=== PATIENT | female | born 1955 | race Caucasian/White ===

== ENCOUNTER 2016-12-15 08:18 | Emergency (ER) | payer OTHER ==
[~2016-12-15] VITALS: Ht 162.6 cm; Wt 95.0 kg
[~2016-12-15 08:18] MED LIST: ALPR.5 PO; HYDR-3533 PO; METO25 PO; PAXI40TA PO; TRAM50 PO
[2016-12-15 08:29] VITALS: BP 175/99; PULSE 78; RESP 20; TEMP 97.9; O2SAT 97
[2016-12-15] MEDS ORDERED: SODIUM CHLORIDE 0.9% FLUSH 10 ML FLUSH IVF PRN (08:30)
[2016-12-15] MEDS ORDERED: SODIUM CHLORID 0.9% 500 ML INJ 500 ML IV ONE (08:30)
[2016-12-15] MEDS ORDERED: NITROGLYCERIN 2% OINT 1 GM PACKET TOP ONE (08:30)
[2016-12-15] MEDS ORDERED: MORPHINE SULFATE 4 MG/ML INJ IV PUSH ONE (08:30)
--- NOTE | 2016-12-15 08:35 | PD ---
HPI Chief Complaint: Chest Pain Time Seen by Provider: 08:30 Travel History International Travel<30 days: No Contact w/Intl Traveler<30days: No Traveled to known affect area: No History of Present Illness HPI 61-year-old female patient with history of hypertension, bipolar disorder, anxiety, presents to the ER today for left sided chest chest pains that is worse with deep breaths and movements. She has been having some coughing, states she smokes "a lot". She denies any nausea, abdominal pains, fevers, vomiting, or any other symptoms. She denies any recent travel. She does states that her doctor's office had called her regarding recent test results which were abnormal, had told her that she had a fairly elevated cholesterol level is well. Chest pain is currently stated to be a 4 out of 10. Modifying Factors: None Associated Signs & Symptoms: Left-sided chest pains, shortness of breath Risk Factors: None PFSH Past Medical History Anxiety: Yes Depression: Yes High Cholesterol: Yes Cerebrovascular Accident: Yes Diabetes: No Diminished Hearing: No Integumentary: Yes (chronic rash on bottom of both feet since 2006) Menopausal: Yes Past Surgical History Other Surgery: Yes ("skin graft,to right inner thigh") Social History Alcohol Use: No Tobacco Use: Yes (1 PPD) Substance Use: No Allergies-Medications (Allergen,Severity, Reaction): Coded Allergies: No Known Allergies (Verified , 12/15/16) Reported Meds & Prescriptions Reported Meds & Active Scripts Active Reported Losartan (Losartan Potassium) 100 Mg Tab 100 Mg PO DAILY Alprazolam 1 Mg Tab 1 Mg PO TID Paroxetine (Paroxetine HCl) 30 Mg Tab 30 Mg PO DAILY Tramadol (Tramadol HCl) 50 Mg Tab 50 Mg PO Q8H PRN Methylphenidate ER 24 HR (Methylphenidate HCl) 54 Mg Jennifer 54 Mg PO DAILY Review of Systems Except as stated in HPI: all other systems reviewed are Neg Physical Exam Narrative GENERAL: Well-developed pleasant elderly white female patient currently in mild distress. She appears mildly anxious. Awake and oriented 3. SKIN: Focused skin assessment warm/dry. HEAD: Atraumatic. Normocephalic. EYES: Pupils equal and round. No scleral icterus. No injection or drainage. ENT: No nasal bleeding or discharge. Mucous membranes pink and moist. NECK: Trachea midline. No JVD. CARDIOVASCULAR: Regular rate and rhythm. No murmur appreciated. Pulses are present and equal bilaterally. RESPIRATORY: No accessory muscle use. Clear to auscultation. Breath sounds equal bilaterally. GASTROINTESTINAL: Abdomen soft, non-tender, nondistended. Hepatic and splenic margins not palpable. MUSCULOSKELETAL: No obvious deformities. No clubbing. No cyanosis. No edema. EXTREMITIES: No clubbing, cyanosis, or edema. No joint tenderness, effusion, or edema noted. No calf tenderness. NEUROLOGICAL: Awake and alert. No obvious cranial nerve deficits. Motor grossly within normal limits. Normal speech. PSYCHIATRIC: Appropriate mood and affect; insight and judgment normal. Data Data Last Documented VS Vital Signs Date Time Temp Pulse Resp B/P (MAP) Pulse Ox O2 Delivery O2 Flow Rate FiO2 12/15/16 09:50 78 18 138/83 (101) 97 Room Air 12/15/16 08:29 97.9 Orders Orders Electrocardiogram (12/15/16 08:30) B-Type Natriuretic Peptide (12/15/16 08:30) Ckmb (Isoenzyme) Profile (12/15/16 08:30) Complete Blood Count With Diff (12/15/16 08:30) Comprehensive Metabolic Panel (12/15/16 08:30) D-Dimer (12/15/16 08:30) Magnesium (Mg) (12/15/16 08:30) Prothrombin Time / Inr (Pt) (12/15/16 08:30) Act Partial Throm Time (Ptt) (12/15/16 08:30) Troponin I (12/15/16 08:30) Chest, Single Ap (12/15/16 08:30) Ecg Monitoring (12/15/16 08:30) Bilateral Bp Monitoring (12/15/16 08:30) Iv Access Insert/Monitor (12/15/16 08:30) Oximetry (12/15/16 08:30) Oxygen Administration (12/15/16 08:30) Morphine Inj (Morphine Inj) (12/15/16 08:30) Nitroglycerin 2% Oint (Nitroglycerin 2% (12/15/16 08:30) Sodium Chloride 0.9% Flush (Ns Flush) (12/15/16 08:30) Sodium Chlorid 0.9% 500 Ml Inj (Ns 500 M (12/15/16 08:30) Labs Laboratory Tests Test 12/15/16 08:45 White Blood Count 7.4 TH/MM3 Red Blood Count 4.43 MIL/MM3 Hemoglobin 14.6 GM/DL Hematocrit 43.2 % Mean Corpuscular Volume 97.5 FL Mean Corpuscular Hemoglobin 32.9 PG Mean Corpuscular Hemoglobin Concent 33.7 % Red Cell Distribution Width 12.9 % Platelet Count 258 TH/MM3 Mean Platelet Volume 7.4 FL Neutrophils (%) (Auto) 72.7 % Lymphocytes (%) (Auto) 21.4 % Monocytes (%) (Auto) 3.2 % Eosinophils (%) (Auto) 2.1 % Basophils (%) (Auto) 0.6 % Neutrophils # (Auto) 5.4 TH/MM3 Lymphocytes # (Auto) 1.6 TH/MM3 Monocytes # (Auto) 0.2 TH/MM3 Eosinophils # (Auto) 0.2 TH/MM3 Basophils # (Auto) 0.0 TH/MM3 CBC Comment DIFF FINAL Differential Comment Prothrombin Time 10.3 SEC Prothromb Time International Ratio 0.9 RATIO Activated Partial Thromboplast Time 26.8 SEC D-Dimer Quantitative (PE/DVT) 0.21 MG/L FEU Blood Urea Nitrogen 12 MG/DL Creatinine 0.71 MG/DL Random Glucose 96 MG/DL Total Protein 6.7 GM/DL Albumin 3.5 GM/DL Calcium Level 8.3 MG/DL Magnesium Level 2.2 MG/DL Alkaline Phosphatase 82 U/L Aspartate Amino Transf (AST/SGOT) 9 U/L Alanine Aminotransferase (ALT/SGPT) 23 U/L Total Bilirubin 0.4 MG/DL Sodium Level 137 MEQ/L Potassium Level 4.5 MEQ/L Chloride Level 106 MEQ/L Carbon Dioxide Level 25.3 MEQ/L Anion Gap 6 MEQ/L Estimat Glomerular Filtration Rate 84 ML/MIN Total Creatine Kinase 51 U/L Troponin I LESS THAN 0.02 NG/ML B-Type Natriuretic Peptide 20 PG/ML MDM Medical Decision Making Medical Screen Exam Complete: Yes Emergency Medical Condition: Yes Medical Record Reviewed: Yes Interpretation(s) EKG shows NSR, no acute ST elevation or depression, and no arrhythmias. No significant T-wave inversions. Laboratory Tests Test 12/15/16 08:45 Neutrophils (%) (Auto) 72.7 % (16.0-70.0) Calcium Level 8.3 MG/DL (8.5-10.1) Aspartate Amino Transf (AST/SGOT) 9 U/L (15-37) Estimat Glomerular Filtration Rate 84 ML/MIN (>89) Troponin I LESS THAN 0.02 NG/ML Last 24 hours Impressions Chest X-Ray 12/15/16 0830 Signed Impressions: Service Date/Time: , December 15, 2016 08:57 - CONCLUSION: Normal examination. Mike Aponte Jr., MD Differential Diagnosis Chest pains, shortness of breath: ACS versus dysrhythmias versus costochondritis versus anxiety attack versus PE versus pneumonia Narrative Course Chest x-ray did not show any signs of acute processes. D-dimer is negative. EKG did not show any signs of acute ST-T changes. Patient had been given nitroglycerin, had taken her own aspirin this morning, and was given morphine in the ER. On reevaluation at 10 AM, she is feeling improved. At this point, I have discussed admission to chest pain center with her for further provocative testing including stress testing for further differentiation of chest pains. However, patient states that her sister has ovarian cancer and she has to be there for her in the next few days. She is declining to stay. I have noted that I cannot rule out underlying cardiac risk and possibility of ACS , wrist would need to be further assessed with further cardiac testing. If she does not want to stay today, she should follow-up closely with primary care doctor and cardiology for further testing as an outpatient. She should return for any worsening in symptoms. The plan was discussed with her and the results were discussed with her and she states understanding, does not want to be admitted to chest pain center and wants to follow-up as an outpatient. Diagnosis Primary Impression: Chest pain Disposition: 01 DISCHARGE HOME Condition: Stable Margret Muniz MD Dec 15, 2016 08:35
[2016-12-15 08:57] LABS: AUTOMATED NEUTROPHIL # 5.4 TH/MM3 (1.8-7.7); BASOPHIL % 0.6 % (0.0-2.0); EOSINOPHIL # 0.2 TH/MM3 (0-0.4); EOSINOPHIL % 2.1 % (0.0-4.0); HEMATOCRIT 43.2 % (35.0-46.0); LYMPH % 21.4 % (9.0-44.0); LYMPHOCYTE # 1.6 TH/MM3 (1.0-4.8); MEAN CELL VOLUME 97.5 FL (80.0-100.0); MEAN CORPUSCULAR HEMOGLOBIN 32.9 PG (27.0-34.0); MEAN CORPUSCULAR HGB CONC 33.7 % (32.0-36.0); MONO % 3.2 % (0.0-8.0); NEUT % 72.7 % (16.0-70.0); PLATELET COUNT 258 TH/MM3 (150-450); RED BLOOD COUNT 4.43 MIL/MM3 (4.00-5.30); RED CELL DISTRIBUTION WIDTH 12.9 % (11.6-17.2); WHITE BLOOD COUNT 7.4 TH/MM3 (4.0-11.0)
[2016-12-15 08:58] LABS: HEMO FLAGS DIFF FINAL
[2016-12-15] MEDS ORDERED: LOSA100T PO (09:04)
[2016-12-15] MEDS ORDERED: METH54TA PO (09:04)
[2016-12-15] MEDS ORDERED: ALPR1TAB3 PO (09:04)
[2016-12-15] MEDS ORDERED: PARO30TA2 PO (09:04)
[2016-12-15] MEDS ORDERED: TRAM50TA PO (09:04)
[2016-12-15 09:05] VITALS: RESP 20; O2SAT 97
[2016-12-15 09:05] LABS: CHLORIDE 106 MEQ/L (98-107); POTASSIUM 4.5 MEQ/L (3.5-5.1); SODIUM (NA) 137 MEQ/L (136-145)
[2016-12-15 09:09] LABS: ANION GAP 6 MEQ/L (5-15); BICARBONATE 25.3 MEQ/L (21.0-32.0); BLOOD UREA NITROGEN 12 MG/DL (7-18); MAGNESIUM 2.2 MG/DL (1.5-2.5)
[2016-12-15 09:12] LABS: ALT (GPT) 23 U/L (10-53); APTT (PATIENT) 26.8 SEC (24.3-30.1); AST (GOT) 9 U/L (15-37); GLOMERULAR FILTRATION RATE 84 ML/MIN (>89); INTERNATIONAL NORMALIZED RATIO 0.9 RATIO; PROTHROMBIN TIME - PATIENT 10.3 SEC (9.8-11.6)
[2016-12-15 09:14] LABS: TOTAL BILIRUBIN ADULT 0.4 MG/DL (0.2-1.0)
[2016-12-15 09:15] LABS: ALKALINE PHOSPHATASE 82 U/L (45-117); CREATINE KINASE 51 U/L (26-192)
[2016-12-15 09:30] VITALS: BP 119/93; PULSE 80; RESP 18; O2SAT 97
[2016-12-15 09:50] VITALS: BP 138/83; PULSE 78; RESP 18; O2SAT 97
--- NOTE | 2016-12-15 09:57 | RADRPT ---
EXAM DATE/TIME: 12/15/2016 08:57 [facility] COMPARISON: CHEST SINGLE AP, May 09, 2014, 18:30. INDICATIONS : Chest pain and shortness of breath for 2 days. MEDICAL HISTORY : None. SURGICAL HISTORY : None. ENCOUNTER: Initial ACUITY: 2 days PAIN SCORE: 4/10 LOCATION: Left upper chest FINDINGS: A single view of the chest demonstrates the lungs to be symmetrically aerated without evidence of mas s, infiltrate or effusion. The cardiomediastinal contours are unremarkable. Osseous structures are intact. CONCLUSION: Normal examination. Mike Aponte Jr., MD on December 15, 2016 at 9:55 Board Certified Radiologist. This report was verified electronically.
--- NOTE | 2016-12-15 13:17 | EKG ---
Date Performed: 12/15/2016 Time Performed: 08:26:26 PTAGE: 61 years EKG: Sinus rhythm NORMAL ECG PREVIOUS TRACING : 05/09/2014 18.00 No significant change from previous tracing noted. DOCTOR: Brando Rodriguez Interpretating Date/Time 12/15/2016 13:15:13
== END 2016-12-15 10:22 | disposition home or self-care (01) ==
LOC: PHED 08:18
DX: R07.9 Chest pain, unspecified (principal); R06.02 Shortness of breath; R05 Cough; I10 Essential (primary) hypertension; E78.00 Pure hypercholesterolemia, unspecified; F17.200 Nicotine dependence, unspecified, uncomplicated; Z79.899 Other long term (current) drug therapy; Z86.59 Personal history of other mental and behavioral disorders; Z86.79 Personal history of other diseases of the circulatory system; Z87.2 Personal history of diseases of the skin and subcutaneous tissue
CPT/HCPCS: 71010; 80053; 82550; 83735; 83880; 84484; 85025; 85379; 85610; 85730; 93005; 96361; 96374; 99285; J2270; J7040

== ENCOUNTER 2017-07-08 02:22 | Emergency (ER) | payer OTHER ==
[~2017-07-08] VITALS: Ht 162.6 cm; Wt 94.8 kg
[~2017-07-08 02:22] MED LIST changes: -ALPR.5 PO; +ALPR1TAB3 PO; -HYDR-3533 PO; +LOSA100T PO; +METH54TA PO; -METO25 PO; +PARO30TA2 PO; -PAXI40TA PO; -TRAM50 PO; +TRAM50TA PO
[2017-07-08 02:28] VITALS: BP 164/75; PULSE 80; RESP 22; TEMP 96.3; O2SAT 97
[2017-07-08] MEDS ORDERED: ASPI-516 CHEW (02:47)
[2017-07-08 03:24] LABS: BILIRUBIN, URINE NEG (NEG); BLOOD, URINE NEG (NEG); GLUCOSE,URINE NEG (NEG); KETONE, URINE NEG (NEG); NITRITE,URINE NEG (NEG); PH, URINE 5.5 (5.0-8.5); URINE COLOR YELLOW (YELLW/STRAW); URINE LEUKOCYTE ESTERASE NEG (NEG)
[2017-07-08 03:31] LABS: AMORPHOUS SEDIMENT, URINE FEW; BACTERIA, URINE FEW /hpf; RBC, URINE 0-3 /hpf (0-3)
[2017-07-08 03:49] VITALS: BP 102/61; PULSE 78; RESP 16; TEMP 97.8; O2SAT 98
[2017-07-08] MEDS ORDERED: ALBUAER3 INH (04:22)
[2017-07-08] MEDS ORDERED: MEDR4PAK PO (04:22)
[2017-07-08] MEDS ORDERED: ROBA750T PO (04:22)
--- NOTE | 2017-07-08 04:25 | PD ---
HPI Chief Complaint: Back/ Neck Pain or Injury Time Seen by Provider: 03:31 Travel History International Travel<30 days: No Contact w/Intl Traveler<30days: No Traveled to known affect area: No History of Present Illness HPI 61-year-old female presents to the emergency department complaining of 10 days of back pain. 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 Patient states that she has chronic cough which is not new back pain is worsened by sitting upright or standing and improved by leaning forward with hip flexion. Patient states that cough increases her pain. Patient denies any chest pain or shortness of breath. Patient has chronic cough related to her tobaccoism. Patient admits to smoking daily. No report of chest pain referred neck jaw shoulder arm pain. No report of abdominal pain. No report of dysuria frequency urgency or hematuria. No report of fall or injury. Patient states that she needs to be seen quickly because she has to go to work this morning. Patient reports she has used [id number] ibuprofen without symptom relief. Patient also has prescription for tramadol which provides her no pain relief. Patient states she has been very inactive over the past several months because she has been depressed about her sister having terminal cancer. Patient does not voice any suicidal homicidal ideation. Patient denies lower extremity numbness tingling or weakness saddle anesthesia or bladder or bowel dysfunction. [facility] Past Medical History Narrative Medical Bipolar, depression; hypertension; dyslipidemia; tobaccoism; CVA; thigh graft; nursing notes reviewed Bipolar Disorder: Yes Anxiety: Yes Depression: Yes High Cholesterol: Yes Chest Pain: Yes Cerebrovascular Accident: Yes Diabetes: No Diminished Hearing: No Hypertension: Yes Integumentary: Yes (chronic rash on bottom of both feet since 2006) Tetanus Vaccination: Unknown Influenza Vaccination: Yes Menopausal: Yes Past Surgical History Other Surgery: Yes ("skin graft,to right inner thigh") Social History Alcohol Use: No Tobacco Use: Yes (2-3 PPD) Substance Use: No Allergies-Medications (Allergen,Severity, Reaction): Coded Allergies: No Known Allergies (Verified Adverse Reaction, Unknown, 07/08/17) Reported Meds & Prescriptions Reported Meds & Active Scripts Active Proair Hfa 8.5 GM Inh (Albuterol Sulfate) 90 Mcg/Act Aer 2 Puff INH Q4-6H PRN 108 mcg/actuation Robaxin (Methocarbamol) 750 Mg Tab 750 Mg PO Q6HR Medrol Dosepak (Methylprednisolone) 4 Mg Dspk 4 Mg PO DIRECTED Per Pharmacist direction Reported Aspirin 81 Mg Chew 81 Mg CHEW DAILY Losartan (Losartan Potassium) 100 Mg Tab 100 Mg PO DAILY Alprazolam 1 Mg Tab 1 Mg PO BID Review of Systems Except as stated in HPI: all other systems reviewed are Neg General / Constitutional: No: Fever, Chills HENT: No: Congestion Cardiovascular: No: Chest Pain or Discomfort, Palpitations, Edema Respiratory: Positive: Cough, No: Shortness of Breath, Pleuritic Pain Gastrointestinal: No: Nausea, Vomiting, Abdominal Pain Genitourinary: Positive: Flank Pain Musculoskeletal: Positive: Myalgias, Arthralgias, Pain (Back pain), No: Weakness, Cramping, Edema Skin: No Rash Neurologic: No: Weakness, Dizziness, Syncope Psychiatric: No: Anxiety Endocrine: No: Heat Intolerance, Cold Intolerance Hematologic/Lymphatic: No: Easy Bruising Physical Exam Narrative GENERAL: Well-developed well-nourished obese female in no acute distress or respiratory distress SKIN: Warm and dry. HEAD: Atraumatic. Normocephalic. EYES: Pupils equal and round. No scleral icterus. No injection or drainage. ENT: No nasal bleeding or discharge. Mucous membranes pink and moist. NECK: Trachea midline. No JVD. CARDIOVASCULAR: Regular rate and rhythm. RESPIRATORY: No accessory muscle use. Clear to auscultation. Breath sounds equal bilaterally. GASTROINTESTINAL: Abdomen soft, non-tender, nondistended. Hepatic and splenic margins not palpable. MUSCULOSKELETAL: Extremities without clubbing, cyanosis, or edema. No obvious deformities. Mild tenderness to palpation along the paravertebral spine no bony point tenderness; mild bilateral flank tenderness to percussion. No lower extremity pain or edema. Patient is able ambulate without difficulty. NEUROLOGICAL: Awake and alert. No obvious cranial nerve deficits. Motor grossly within normal limits. Five out of 5 muscle strength in the arms and legs. Sensory exam intact. Normal speech. PSYCHIATRIC: Appropriate mood and affect; insight and judgment normal. Data Data Last Documented VS Vital Signs Date Time Temp Pulse Resp B/P (MAP) Pulse Ox O2 Delivery O2 Flow Rate FiO2 07/08/17 05:00 70 18 148/83 (104) 97 07/08/17 03:49 97.8 Room Air Orders Orders Chest, Pa & Lat (07/08/17 ) Spine, Thoracic-Ap/Lat/Sw(3vw) (07/08/17 ) Spine, Lumbar - Ltd (Ap & Lat) (07/08/17 ) Urinalysis - C+S If Indicated (07/08/17 03:00) Dexamethasone Inj (Decadron Inj) (07/08/17 04:30) Ketorolac Inj (Toradol Inj) (07/08/17 04:30) Orphenadrine Inj (Norflex Inj) (07/08/17 05:00) Labs Laboratory Tests Test 07/08/17 03:09 Urine Color YELLOW Urine Turbidity CLEAR Urine pH 5.5 Urine Specific Garretson 1.025 Urine Protein NEG mg/dL Urine Glucose (UA) NEG mg/dL Urine Ketones NEG mg/dL Urine Occult Blood NEG Urine Nitrite NEG Urine Bilirubin NEG Urine Urobilinogen 0.2 MG/DL Urine Leukocyte Esterase NEG Urine RBC 0-3 /hpf Urine WBC 3-5 /hpf Urine Squamous Epithelial Cells 6-8 /hpf Urine Amorphous Sediment FEW Urine Bacteria FEW /hpf Microscopic Urinalysis Comment CULT NOT INDICATED MDM Medical Decision Making Medical Screen Exam Complete: Yes Emergency Medical Condition: Yes Medical Record Reviewed: Yes Interpretation(s) UA: cx not indicated; no blood cxr: no lobar infiltrate no pneumothorax t-spine xr: marked degenerative changes at T-10 toT-12 with djd/ osteophytes/? old mild compression fx's L/S spine xr: chronic changes Differential Diagnosis Lumbosacral back pain, sacroiliitis, musculoskeletal pain, UTI, kidney stone Narrative Course Patient with reproducible musculoskeletal and paravertebral spasm of the thoracic and lumbar spine no point bony tenderness and without sciatica or cord compression findings; patient treated symptomatically with Toradol 60 mg IM and Decadron 8 mg IM Urinalysis reveals no blood/RBCs and cultures not indicated due to squamous cells c/w contamination Patient continues complain of spasm therefore patient given injection of Norflex 60 mg IM Patient informed of chronic imaging results as read by me; radiology results pending Patient provided prescription for Medrol Dosepak and Robaxin as well as albuterol inhaler Patient is stable for outpatient management and encouraged to use moist heat intermittently to the back area rest on firm surface avoid lifting greater than 5 pounds and return to the emergency department for any concerns or change in condition Diagnosis Primary Impression: Thoracolumbar back pain Additional Impressions: Tobacco abuse Bronchitis Referrals: Primary Care Physician call for appointment Patient Instructions: General Instructions Departure Forms: Tests/Procedures, Work Release Special Instructions: no work x 3 days; avoid lifting greater than 5 pounds x 3 days Additional Instructions: Apply moist heat to affected area intermittently Increase fluid hydration Take medication as prescribed Follow-up with your primary care provider call office on Monday No lifting greater than 5 pounds 3 days Return to the emergency department for any concerns or change in condition Med/Other Pt SpecificInfo: Prescription(s) given Scripts Albuterol 8.5 GM Inh (Proair Hfa 8.5 GM Inh) 90 Mcg/Act Aer 2 PUFF INH Q4-6H Y for SHORTNESS OF BREATH, #1 INHALER 0 Refills 108 mcg/actuation Prov: Analy Liao MD 07/08/17 Methocarbamol (Robaxin) 750 Mg Tab 750 MG PO Q6HR for Muscle Spasm, #7 TAB 0 Refills Prov: Analy Liao MD 07/08/17 Methylprednisolone Dosepak (Medrol Dosepak) 4 Mg Dspk 4 MG PO DIRECTED, #1 DSPK 0 Refills Per Pharmacist direction Prov: Analy Liao MD 07/08/17 Disposition: 01 DISCHARGE HOME Condition: Stable Analy Liao MD July 08, 2017 04:25
[2017-07-08] MEDS ORDERED: KETOROLAC TROMETHAMINE 60 MG/2 ML (IM) VIAL IM ONE (04:30)
[2017-07-08] MEDS ORDERED: DEXAMETHASONE SOD PHOS 4 MG/ML VIAL IM ONE (04:30)
[2017-07-08 05:00] VITALS: BP 148/83
[2017-07-08] MEDS ORDERED: ORPHENADRINE INJ 60 MG/2 ML AMP IM ONE (05:00)
--- NOTE | 2017-07-08 05:10 | RADRPT ---
EXAM DATE/TIME: 07/08/2017 03:05 [facility] COMPARISON: CHEST SINGLE AP, December 15, 2016, 8:57. INDICATIONS : Cough. MEDICAL HISTORY : Stroke. Hypercholesterolemia. Anxiety. Chronic rash to bot[place] of feet SURGICAL HISTORY : Skin graft to right inner thigh ENCOUNTER: Initial ACUITY: 1 week PAIN SCORE: 10/10 LOCATION: Bilateral chest FINDINGS: PA and lateral views of the chest demonstrate the lungs to be symmetrically aerated without evidence of mass, infiltrate or effusion. The cardiomediastinal contours are unremarkable. Osseous structure s are intact. CONCLUSION: No acute disease. Darin Ray MD on July 08, 2017 at 5:07 Board Certified Radiologist. This report was verified electronically.
--- NOTE | 2017-07-08 05:12 | RADRPT ---
EXAM DATE/TIME: 07/08/2017 03:05 [facility] COMPARISON: No previous studies available for comparison. INDICATIONS : Thoracic spine pain. No known injury. MEDICAL HISTORY : Stroke. Hypercholesterolemia. Anxiety. Chronic rash to bot[place] of feet SURGICAL HISTORY : Skin graft to right inner thigh ENCOUNTER: Initial ACUITY: 1 week PAIN SCORE: 10/10 LOCATION: Bilateral thoracic spine FINDINGS: There is mild thoracic kyphoscoliosis. Slight focal angular deformity at the thoracolumbar junction a ppears to relate to mild compressive injury at what is likely the T. 12 level, age-indeterminate. The re is mild degenerative change most significantly in the lower thoracic region and visualized upper l umbar region. There is no evidence of spondylolisthesis. No destructive changes suggested. CONCLUSION: Kyphoscoliosis and mild compressive deformity at the thoracolumbar junction of undetermined chronicit y. Darin Ray MD on July 08, 2017 at 5:08 Board Certified Radiologist. This report was verified electronically.
--- NOTE | 2017-07-08 05:14 | RADRPT ---
EXAM DATE/TIME: 07/08/2017 03:05 [facility] COMPARISON: No previous studies available for comparison. INDICATIONS : Lumbar spine pain. No known injury. MEDICAL HISTORY : Stroke. Hypercholesterolemia. Anxiety. Chronic rash to bot[place] of feet SURGICAL HISTORY : Skin graft to right inner thigh ENCOUNTER: Initial ACUITY: 1 week PAIN SCORE: 10/10 LOCATION: Bilateral lumbar spine FINDINGS: The alignment is satisfactory. There is slight ventral wedging of the vertebrae at the thoracolumbar junction which appears likely old. Degenerative changes present most likely in the thoracolumbar junc tion region and upper lumbar spine. Reasonable preservation of disc height throughout the lumbar spin e. No evidence of destructive change. CONCLUSION: Degenerative changes. Likely remote mild wedge compression injuries at the thoracolumbar junction. Darin Ray MD on July 08, 2017 at 5:10 Board Certified Radiologist. This report was verified electronically.
== END 2017-07-08 05:00 | disposition home or self-care (01) ==
LOC: PHED 02:22
DX: M54.5 Low back pain (principal); M54.6 Pain in thoracic spine; J40 Bronchitis, not specified as acute or chronic; F31.9 Bipolar disorder, unspecified; F41.9 Anxiety disorder, unspecified; I10 Essential (primary) hypertension; Z86.73 Personal history of transient ischemic attack (TIA), and cerebral infarction without residual deficits; E78.5 Hyperlipidemia, unspecified; F17.200 Nicotine dependence, unspecified, uncomplicated
CPT/HCPCS: 71046; 72072; 72100; 81001; 96372; 99284; J1100; J1885; J2360